=== PATIENT | female | born 1955 | race Caucasian/White ===

== ENCOUNTER 2019-11-25 10:47 | Inpatient (IN) | payer OTHER ==
[~2019-11-25] VITALS: Ht 162.6 cm; Wt 69.9 kg
[2019-11-25 11:21] LABS: BASOPHILS % (AUTO) 0.9 % (0.0-5.0); EOSINOPHILS % (AUTO) 0.8 % (0.0-8.0); HEMATOCRIT 22.7 % (36-48); LYMPHOCYTES % (AUTO) 28.5 % (21.0-51.0); MEAN CORPUSCULAR HEMOGLOBIN 30.4 pg (27.0-33.0); MEAN CORPUSCULAR VOLUME 91.9 fL (79-99); MONOCYTES % (AUTO) 6.3 % (3.0-13.0); NEUTROPHILS % (AUTO) 63.1 % (40.0-77.0); PLATELET COUNT (AUTO) 213 K/uL (130-400); RED BLOOD CELL COUNT(AUTO) 2.47 MIL/uL (4.00-5.50); RED CELL DISTRIBUTION WIDTH 13.3 % (11.0-15.5); WHITE BLOOD COUNT (AUTO) 7.6 K/uL (4.8-10.8)
[2019-11-25] MEDS ORDERED: SODIUM CHLORIDE 0.9% 100 ML IV ONE ×2 (11:21→22:29)
[2019-11-25 11:23] LABS: ALBUMIN 3.4 g/dL (3.5-5.0); BILIRUBIN,TOTAL 0.2 mg/dL (0.2-1.0); TOTAL PROTEIN, SERUM 6.4 g/dL (6.0-8.3)
[2019-11-25 11:33] LABS: INR 0.91 (0.85-1.15); PARTIAL THROMBOPLASTIN TIME 20.2 SEC (26.3-35.5); PROTHROMBIN TIME 9.9 SEC (9.6-11.6)
[2019-11-25] MEDS ORDERED: SODIUM CHLORIDE 0.9% 1000ML 1,000 ML IV ONE (12:03)
[2019-11-25 13:38] LABS: APPEARANCE,URINE CLEAR (CLEAR); BILIRUBIN,URINE NEGATIVE (NEGATIVE); COLOR,URINE YELLOW (YELLOW); GLUCOSE, URINE (UA) NEGATIVE (NEGATIVE); KETONES,URINE NEGATIVE (NEGATIVE); LEUKOCYTE ESTERASE ,URINE MODERATE (NEGATIVE); NITRATE,URINE NEGATIVE (NEGATIVE); OCCULT BLOOD,URINE LARGE (NEGATIVE); PROTEIN,URINE NEGATIVE (NEGATIVE); UROBILINOGEN,URINE 0.2 mg/dL (0.2-1.0)
[2019-11-25] MEDS ORDERED: ACETAMINOPHEN 325 MG TAB PO PRN ×2 (13:45→16:30)
[2019-11-25] MEDS ORDERED: ONDANSETRON HCL 4 MG/2 ML VIAL IV PRN ×2 (13:45→16:30)
[2019-11-25 13:50] LABS: BACTERIA,URINE Rare /HPF (None Seen); MUCUS,URINE Few LPF (None Seen); RBC,URINE 0-1 /HPF (0-1); SQUAMOUS EPITHELIAL CELL,UR Few /HPF (0-2)
[2019-11-25] MEDS ORDERED: NITROGLYCERIN 0.4 MG SL TAB SL PRN (16:30)
[2019-11-25] MEDS ORDERED: PEG 3350/NA SULF,BICARB,CL/KCL 4000 ML SOLN PO SCH (17:00)
[2019-11-25 17:39] LABS: HEMATOCRIT 20.5 % (36-48)
[2019-11-25 20:41] VITALS: BP 116/74
[2019-11-25] MEDS ORDERED: SODIUM CHLORIDE 0.9% 250 ML IV ONE (21:55)
[2019-11-25] MEDS ORDERED: PANTOPRAZOLE SODIUM 80 MG in SODIUM CHLORIDE 0.9% 100 ML IV SCH (22:45)
[2019-11-25 23:42] VITALS: BP 118/69
[2019-11-26] VITALS (21 sets, daily range): BP systolic 90–132; BP diastolic 41–77
[2019-11-26 01:51] LABS: HEMATOCRIT 19.3 % (36-48)
[2019-11-26] MEDS ORDERED: PROPOFOL 10 MG/ML 20ML VIAL IV ONE ×3 (06:52→08:15)
[2019-11-26] MEDS ORDERED: LIDOCAINE HCL 1% 20 ML VIAL ONE (06:52)
[2019-11-26] MEDS ORDERED: MIDAZOLAM HCL 1 MG/ML 2ML VIAL ONE (07:38)
[2019-11-26] MEDS ORDERED: ALBUMIN (HUMAN) 5% 250 ML IV ONE (08:43)
--- NOTE | 2019-11-26 08:50 | NUR ---
PACU NOTE as per Jhonatan,ORAL SURGEON order to give Albumin 5% 12.5 grams IV in PACU for noted low BPs. Hung Albumin IV at this time. pATient AAOx3 and asymptomatic currently.
--- NOTE | 2019-11-26 10:10 | NUR ---
S/P EGD/COLONOSCOPY PT BACK IN ROOM IN NO DISTRESS, EYES CLOSED, DENIES ANY PAIN. ON V/S ORDERED.
[2019-11-26 10:38] LABS: BASOPHILS % (AUTO) 0.9 % (0.0-5.0); LYMPHOCYTES % (AUTO) 37.6 % (21.0-51.0); MEAN CORPUSCULAR HGB CONC 32.7 g/dL (32.0-36.0); MEAN CORPUSCULAR VOLUME 88.7 fL (79-99); MONOCYTES % (AUTO) 7.1 % (3.0-13.0); NEUTROPHILS % (AUTO) 50.7 % (40.0-77.0); PLATELET COUNT (AUTO) 158 K/uL (130-400); RED BLOOD CELL COUNT(AUTO) 2.48 MIL/uL (4.00-5.50); RED CELL DISTRIBUTION WIDTH 17.2 % (11.0-15.5); WHITE BLOOD COUNT (AUTO) 5.4 K/uL (4.8-10.8)
[2019-11-26 10:52] LABS: ALBUMIN 3.2 g/dL (3.5-5.0); BILIRUBIN,TOTAL 0.4 mg/dL (0.2-1.0); CREATININE 0.8 mg/dL (0.5-1.5); POTASSIUM 3.3 mmol/L (3.5-5.1); TOTAL PROTEIN, SERUM 5.7 g/dL (6.0-8.3)
[2019-11-26 11:06] LABS: % IRON SATURATION 41.4 % (22-44)
--- NOTE | 2019-11-26 12:30 | NUR ---
DR. Ramos AWARE OF LOW BP 94/60, PT INSTRUCTED NOT TO WALK ALONE AND TO CALL FOR ASSISTANCE TO PREVENT FALLS. PT APPEARS ASYMPTOMATIC, DENIES ANY DIZZINESS OR LIGHT HEADED.
[2019-11-26] MEDS ORDERED: CITA20TA17 PO (15:49)
[2019-11-26 16:08] LABS: HEMATOCRIT 22.4 % (36-48)
[2019-11-26] MEDS: PANTOPRAZOLE SODIUM 40 MG TABLET.DR PO SCH (20:58)
[2019-11-27 03:30] VITALS: BP 115/76
[2019-11-27 05:51] LABS: BASOPHILS % (AUTO) 0.8 % (0.0-5.0); EOSINOPHILS % (AUTO) 7.1 % (0.0-8.0); HEMATOCRIT 21.2 % (36-48); LYMPHOCYTES % (AUTO) 38.7 % (21.0-51.0); MONOCYTES % (AUTO) 7.4 % (3.0-13.0); NEUTROPHILS % (AUTO) 45.6 % (40.0-77.0); PLATELET COUNT (AUTO) 171 K/uL (130-400); RED BLOOD CELL COUNT(AUTO) 2.41 MIL/uL (4.00-5.50); RED CELL DISTRIBUTION WIDTH 17.2 % (11.0-15.5); WHITE BLOOD COUNT (AUTO) 4.8 K/uL (4.8-10.8)
[2019-11-27 06:14] LABS: ALBUMIN 2.8 g/dL (3.5-5.0); BILIRUBIN,TOTAL 0.3 mg/dL (0.2-1.0); CREATININE 0.8 mg/dL (0.5-1.5); POTASSIUM 3.3 mmol/L (3.5-5.1); TOTAL PROTEIN, SERUM 5.2 g/dL (6.0-8.3)
[2019-11-27 08:28] VITALS: BP 113/63
[2019-11-27] MEDS: PANTOPRAZOLE SODIUM 40 MG TABLET.DR PO SCH ×2 (08:30→23:18)
[2019-11-27 11:04] VITALS: BP 117/66
[2019-11-27] MEDS: FERROUS SULFATE 325 MG TABLET.DR PO SCH ×2 (15:01→23:18)
[2019-11-27 16:15] VITALS: BP 118/68
--- NOTE | 2019-11-27 17:31 | NUR ---
Initial' Met with pt this afternoon to discuss dcp. 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 She mentions that they are currently staying w friends in [place]. Pt mentions that prior to admission she was independent w ambulation and ADLs. She does not own any DME or receive services. Per pt she feels safe and comfortable to return home to her friends home @ [place]. CM to to continue to follow and wait for Md recommendations. Addendum: 11/27/19 at 1733 by KIET OJEDA Amended: Links added.
[2019-11-27] MEDS ORDERED: SODIUM CHLORIDE 0.9% 250 ML IV ONE (23:20)
[2019-11-27] MEDS: LACTULOSE 20 GM/30 ML UDCUP PO PRN (23:37)
[2019-11-28] VITALS: BP 130/78
[2019-11-28 04:00] VITALS: BP 111/64
[2019-11-28 05:22] LABS: BASOPHILS % (AUTO) 0.8 % (0.0-5.0); EOSINOPHILS % (AUTO) 4.7 % (0.0-8.0); HEMATOCRIT 23.7 % (36-48); MEAN CORPUSCULAR HEMOGLOBIN 29.4 pg (27.0-33.0); MEAN CORPUSCULAR HGB CONC 33.3 g/dL (32.0-36.0); MEAN CORPUSCULAR VOLUME 88.1 fL (79-99); MONOCYTES % (AUTO) 8.3 % (3.0-13.0); NEUTROPHILS % (AUTO) 49.8 % (40.0-77.0); PLATELET COUNT (AUTO) 186 K/uL (130-400); RED BLOOD CELL COUNT(AUTO) 2.69 MIL/uL (4.00-5.50); RED CELL DISTRIBUTION WIDTH 16.1 % (11.0-15.5); WHITE BLOOD COUNT (AUTO) 5.3 K/uL (4.8-10.8)
[2019-11-28 05:46] LABS: ALBUMIN 2.9 g/dL (3.5-5.0); BILIRUBIN,TOTAL 0.3 mg/dL (0.2-1.0); CREATININE 0.8 mg/dL (0.5-1.5); POTASSIUM 3.3 mmol/L (3.5-5.1); TOTAL PROTEIN, SERUM 5.4 g/dL (6.0-8.3)
[2019-11-28 08:00] VITALS: BP 125/78
[2019-11-28] MEDS: FERROUS SULFATE 325 MG TABLET.DR PO SCH (09:22)
[2019-11-28] MEDS: PANTOPRAZOLE SODIUM 40 MG TABLET.DR PO SCH (09:22)
[2019-11-28] MEDS: LACTULOSE 20 GM/30 ML UDCUP PO PRN (09:22)
[2019-11-28] MEDS ORDERED: LIDOCAINE HCL-MPF 1% 2ML VIAL IV PRN (10:30)
[2019-11-28] MEDS ORDERED: POTASSIUM CHLORIDE 20MEQ/100ML 100 ML IV PRN (10:30)
[2019-11-28] MEDS ORDERED: POTASSIUM CHLORIDE 20 MEQ ERTAB PO PRN (10:30)
[2019-11-28] MEDS ORDERED: POTASSIUM CHLORIDE 10% ELIXIR 20 MEQ/15 ML UDCUP PO PRN (10:30)
[2019-11-28] MEDS ORDERED: EPOETIN ALFA 10,000 UNIT/ML VIAL SQ SCH (10:45)
[2019-11-28] MEDS ORDERED: COMPOUND IV MISC 1 EACH IVSOLN MISC PRN (10:45)
[2019-11-28] MEDS ORDERED: CITALOPRAM 20 MG TABLET PO PRN (10:45)
[2019-11-28] MEDS ORDERED: IRON SUCROSE COMPLEX 300 MG in SODIUM CHLORIDE 0.9% 50 ML IV SCH (11:00)
[2019-11-28 12:00] VITALS: BP 125/87
--- NOTE | 2019-11-28 13:01 | NUR ---
discharge instructions given in Polish. explained the importance of followup and list of MDs given to patient for follow up. pt denies pain and voices no concerns and/or questions.
== END 2019-11-28 13:33 | disposition home or self-care (01) | DRG 378 ==
LOC: EDH 10:47 → EDHIP 16:25 → 4BH 18:32
PROVIDERS: ADMIT Family Medicine; ATTEND Family Medicine
PROC: 30233N1 Transfusion of Nonautologous Red Blood Cells into Peripheral Vein, Percutaneous Approach (ICD-10-PCS; principal; 2019-11-26)
PROC: 0DJ08ZZ Inspection of Upper Intestinal Tract, Via Natural or Artificial Opening Endoscopic (ICD-10-PCS; 2019-11-26)
PROC: 0DJD8ZZ Inspection of Lower Intestinal Tract, Via Natural or Artificial Opening Endoscopic (ICD-10-PCS; 2019-11-26)
DX: K92.2 Gastrointestinal hemorrhage, unspecified (principal); D62 Acute posthemorrhagic anemia; Q43.8 Other specified congenital malformations of intestine; E44.1 Mild protein-calorie malnutrition; E87.6 Hypokalemia; Z98.84 Bariatric surgery status; Z79.82 Long term (current) use of aspirin; Z90.710 Acquired absence of both cervix and uterus; Z68.26 Body mass index [BMI] 26.0-26.9, adult
CPT/HCPCS: 36415; 36430; 43235; 45378; 70450; 74176; 78278; 80053; 81001; 82150; 82270; 82550; 83540; 83550; 83690; 84484; 85014; 85018; 85025; 85610; 85730; 86850; 86900; 86901; 86922; 87804; 93005; 99291; A9512; C9113; G0378; J0885; J1756; J2250; J2405; J2704; J7030; P9016; P9045